=== PATIENT | male | born 1950 | race Caucasian/White ===

== ENCOUNTER 2019-05-08 08:44 | Outpatient (CLI) | payer MEDICARE ==
[2019-05-08] MEDS ORDERED: Gadobenate Dimeglumine 529 MG/1 ML (20ML VIAL) ONE (09:11)
--- NOTE | 2019-05-08 09:57 | MRI ---
Brain MRI with and without contrast: 05/08/2019 COMPARISON: None HISTORY: Memory impairment, difficulty with recall TECHNIQUE: Multiplanar multisequence MR imaging of the brain obtained with and without contrast FINDINGS: The diffusion weighted imaging demonstrates no evidence for acute infarction. The axial gradient echo imaging demonstrates no evidence for intracranial hemorrhage. There is mild diffuse cerebral volume loss with associated prominence of the CSF containing spaces. Multiple subcentimeter foci of increased T2 and FLAIR signal noted within the deep and subcortical wh ite matter bilaterally, evidence of small vessel disease. There is mild mucosal thickening involving the bilateral ethmoid air cells and the left maxillary sin us. There are a few opacified mastoid air cells on the left. Small linear areas of peripheral increased T2 signal noted within the right cerebellar hemisphere sug gesting areas of prior ischemia. Arterial flow voids at the axial level of the skull base appear grossly unremarkable on the T2-weighted imaging. The postcontrast imaging demonstrates no abnormal enhancement within the brain parenchyma. IMPRESSION: Evidence of small vessel disease. No acute findings.
== END 2019-05-08 08:45 | disposition home or self-care (01) ==
LOC: SCSMRI 08:44
PROVIDERS: ATTEND Psychiatry & Neurology Neurology
DX: R41.3 Other amnesia (principal); I67.9 Cerebrovascular disease, unspecified
CPT/HCPCS: 70553; 82565

== ENCOUNTER 2019-06-07 10:14 | Outpatient (CLI) | payer MEDICARE ==
--- NOTE | 2019-06-07 10:37 | RAD ---
XR Hip Rt 2-3 View: 06/07/2019 12:00 AM CLINICAL INDICATION: Pain COMPARISON: None. FINDINGS: Fracture:No fracture. Arthropathy:Mild arthropathy. Incidental findings:Surgical clips overlie the bilateral thigh soft tissues IMPRESSION: 1. No acute osseous abnormality. 2. Mild osteoarthritis.
== END 2019-06-07 10:15 | disposition home or self-care (01) ==
LOC: BICRAD 10:14
PROVIDERS: ATTEND Family Medicine
DX: M25.551 Pain in right hip (principal); M16.11 Unilateral primary osteoarthritis, right hip

== ENCOUNTER 2022-08-08 11:51 | Inpatient (IN) | payer MEDICARE ==
[2022-08-08 12:37] LABS: #Basophils 0.1 thou/uL (0.0-0.2); #Lymphocytes 1.1 thou/uL (1.20-3.40); #Monocytes 0.2 thou/uL (0.11-0.59); #Neutrophils 2.8 thou/uL (1.40-6.50); %Basophils 1.5 % (0.0-1.0); %Eosinophils 0.4 % (0.0-10.0); %Lymphocytes 25.7 % (21.0-51.0); %Monocytes 4.5 % (0.0-10.0); %Neutrophils 67.9 % (42.0-75.0); Hemoglobin 13.9 g/dL (14.0-18.0); Mean Corpuscular HGB CONC 32.6 g/dL (32.0-36.0); Mean Corpuscular Hemoglobin 33.3 pg (27.0-31.0); Mean Platelet Volume 9.1 fL (7.4-10.4); Platelet Count 94 thou/uL (130-400); RBC Distribution Width 12.7 % (11.5-14.5); Red Blood Cell (RBC) Count 4.19 mill/uL (4.70-6.10); White Blood Cell (WBC) Count 4.1 thou/uL (4.8-10.8)
[2022-08-08 12:57] LABS: ALT (SGPT) 15 U/L (8-55); AST (SGOT) 15 U/L (5-34); Albumin 3.3 g/dL (3.4-4.8); Alkaline Phosphatase 57 U/L (40-110); Anion Gap 86 mmol/L (10-20); BUN (Urea Nitrogen) 11 mg/dL (8.4-25.7); Bilirubin, Total 0.5 mg/dL (0.2-1.2); Calc. Creatinine Clearance 0 mL/min (70-130); Calcium 6.5 mg/dL (7.8-10.44); Chloride 82 mmol/L (98-107); Estimated GFR 98; Globulin 2.2 g/dL (2.4-3.5); Glucose 122 mg/dL (83-110); Potassium 3.2 mmol/L (3.5-5.1); Protein, Total 5.5 g/dL (5.8-8.1)
[2022-08-08 13:18] LABS: Carbon Dioxide 9 mmol/L (23-31); Sodium 174 mmol/L (136-145)
[2022-08-08 13:54] LABS: Bilirubin Negative (Negative); Blood, Urine Negative (Negative); Clarity Clear (Clear); Glucose, Urine (Dipstick) Normal (Negative); Ketone, Urine 20 mg/dL (Negative); Leukocyte Negative Leu/uL (Negative); Nitrite Negative (Negative); Protein, Urine (Dipstick) Negative (Neg-Trace); Specific Gravity, Urine 1.012 (1.002-1.036); Urobilinogen Normal mg/dL (Less than 2)
[2022-08-08 14:07] LABS: Anion Gap 18 mmol/L (10-20); BUN (Urea Nitrogen) 12 mg/dL (8.4-25.7); Calc. Creatinine Clearance 0 mL/min (70-130); Calcium 8.9 mg/dL (7.8-10.44); Carbon Dioxide 16 mmol/L (23-31); Chloride 109 mmol/L (98-107); Estimated GFR 93; Glucose 141 mg/dL (83-110); Lipase 60 U/L (8-78); Potassium 3.6 mmol/L (3.5-5.1); Sodium 139 mmol/L (136-145)
[2022-08-08] MEDS ORDERED: Ondansetron ODT 4 MG TAB PO PRN (16:12)
[2022-08-08] MEDS ORDERED: Acetaminophen 325 MG TAB PO PRN (16:12)
[2022-08-08] MEDS ORDERED: Ondansetron PF 4 MG/2 ML Vial IVP PRN (16:12)
[2022-08-08 16:33] LABS: Lactic Acid 3.2 mmol/L (0.5-2.2)
[2022-08-08 16:41] LABS: Troponin I Less than 0.010 ng/mL (< 0.028)
[2022-08-08 16:59] LABS: Hemoglobin A1c 4.9 % (4.0-6.0)
[2022-08-08 17:50] VITALS: BMI 25.4
[2022-08-08] MEDS ORDERED: Sodium Chloride 0.9% 500 ML IV SCH (18:15)
[2022-08-08] MEDS: Sodium Chloride 0.45% 1,000 ML IV SCH (18:29)
[2022-08-08 19:48] LABS: Troponin I Less than 0.010 ng/mL (< 0.028)
[2022-08-08] MEDS: Famotidine 20 MG TAB PO SCH (21:24)
[2022-08-08] MEDS: Divalproex Sodium DR 500 MG TAB PO SCH (21:24)
[2022-08-08] MEDS: Rosuvastatin 20 MG TAB PO SCH (21:24)
[2022-08-08 22:34] LABS: Lactic Acid 2.2 mmol/L (0.5-2.2)
[2022-08-09 05:42] LABS: Anion Gap 13 mmol/L (10-20); BUN (Urea Nitrogen) 13 mg/dL (8.4-25.7); Calc. Creatinine Clearance 92 mL/min (70-130); Calcium 8.6 mg/dL (7.8-10.44); Carbon Dioxide 19 mmol/L (23-31); Cardiac Risk 3.1 (Less than 4.5); Chloride 108 mmol/L (98-107); Cholesterol 152 mg/dl (< 200 Desired); Estimated GFR 96; Glucose 86 mg/dL (83-110); HDL Cholesterol 49 mg/dL (>60 Neg Risk); LDL Cholesterol, Calculated 87 mg/dL; Potassium 3.5 mmol/L (3.5-5.1); Sodium 136 mmol/L (136-145); Triglycerides 81 mg/dL (Less than 150)
[2022-08-09 05:58] LABS: #Lymphocytes 1.5 thou/uL (1.20-3.40); #Monocytes 0.8 thou/uL (0.11-0.59); #Neutrophils 9.3 thou/uL (1.40-6.50); %Basophils 0.3 % (0.0-1.0); %Eosinophils 0.3 % (0.0-10.0); %Monocytes 6.7 % (0.0-10.0); %Neutrophils 79.7 % (42.0-75.0); Hemoglobin 11.6 g/dL (14.0-18.0); Mean Corpuscular HGB CONC 33.8 g/dL (32.0-36.0); Mean Corpuscular Hemoglobin 33.2 pg (27.0-31.0); Mean Corpuscular Volume 98.4 fL (78.0-98.0); Mean Platelet Volume 9.4 fL (7.4-10.4); Platelet Count 112 thou/uL (130-400); RBC Distribution Width 12.8 % (11.5-14.5); Red Blood Cell (RBC) Count 3.49 mill/uL (4.70-6.10); White Blood Cell (WBC) Count 11.7 thou/uL (4.8-10.8)
[2022-08-09] MEDS: Sodium Chloride 0.45% 1,000 ML IV SCH (08:18)
[2022-08-09] MEDS ORDERED: Potassium Chloride 20 MEQ TAB PO SCH (08:30)
[2022-08-09 08:42] LABS: Magnesium 1.6 mg/dL (1.6-2.6)
[2022-08-09] MEDS ORDERED: Lisinopril 5 MG TAB PO SCH (09:00)
[2022-08-09] MEDS: Lactated Ringer's 1,000 ML IV SCH (09:51)
[2022-08-09] MEDS: Aspirin 325 mg Enteric Coated Tablet PO SCH (09:52)
[2022-08-09] MEDS: Fish Oil 1,000 MG CAP PO SCH (09:53)
[2022-08-09] MEDS: Folic Acid 1 MG TAB PO SCH (09:53)
[2022-08-09] MEDS: Multivit, Therapeutic 1 TAB PO SCH (09:53)
[2022-08-09] MEDS: Famotidine 20 MG TAB PO SCH ×2 (09:54→21:35)
[2022-08-09] MEDS ORDERED: Aspirin 81 mg Enteric Coated Tablet PO SCH (16:30)
[2022-08-09] MEDS: Divalproex Sodium DR 500 MG TAB PO SCH (21:34)
[2022-08-09] MEDS: Rosuvastatin 20 MG TAB PO SCH (21:34)
[2022-08-09] MEDS: Donepezil HCl 10 MG TAB PO SCH (21:35)
[2022-08-10] MEDS: Lactated Ringer's 1,000 ML IV SCH (03:31)
[2022-08-10 05:50] LABS: #Eosinphils 0.2 thou/uL (0.0-0.7); #Lymphocytes 1.6 thou/uL (1.20-3.40); #Monocytes 0.8 thou/uL (0.11-0.59); #Neutrophils 5.4 thou/uL (1.40-6.50); %Eosinophils 1.9 % (0.0-10.0); %Lymphocytes 20.6 % (21.0-51.0); %Monocytes 9.8 % (0.0-10.0); %Neutrophils 67.8 % (42.0-75.0); Hemoglobin 11.8 g/dL (14.0-18.0); Mean Corpuscular HGB CONC 33.3 g/dL (32.0-36.0); Mean Corpuscular Hemoglobin 33.2 pg (27.0-31.0); Mean Corpuscular Volume 99.5 fL (78.0-98.0); Platelet Count 96 thou/uL (130-400); RBC Distribution Width 12.7 % (11.5-14.5); Red Blood Cell (RBC) Count 3.57 mill/uL (4.70-6.10)
[2022-08-10] MEDS: Aspirin 325 mg Enteric Coated Tablet PO SCH (06:09)
[2022-08-10] MEDS: Folic Acid 1 MG TAB PO SCH (06:09)
[2022-08-10] MEDS: Fish Oil 1,000 MG CAP PO SCH (06:09)
[2022-08-10] MEDS: Multivit, Therapeutic 1 TAB PO SCH (06:09)
[2022-08-10] MEDS: Famotidine 20 MG TAB PO SCH ×2 (06:09→20:26)
[2022-08-10 06:35] LABS: ALT (SGPT) 14 U/L (8-55); AST (SGOT) 14 U/L (5-34); Albumin 3.4 g/dL (3.4-4.8); Alkaline Phosphatase 65 U/L (40-110); Anion Gap 12 mmol/L (10-20); BUN (Urea Nitrogen) 15 mg/dL (8.4-25.7); Bilirubin, Direct 0.3 mg/dL (0.1-0.3); Bilirubin, Total 0.8 mg/dL (0.2-1.2); Calc. Creatinine Clearance 84 mL/min (70-130); Calcium 8.3 mg/dL (7.8-10.44); Carbon Dioxide 22 mmol/L (23-31); Chloride 108 mmol/L (98-107); Estimated GFR 93; Glucose 168 mg/dL (83-110); Magnesium 1.7 mg/dL (1.6-2.6); Potassium 3.8 mmol/L (3.5-5.1); Protein, Total 5.8 g/dL (5.8-8.1); Sodium 138 mmol/L (136-145)
[2022-08-10] MEDS ORDERED: Midazolam HCl 2 mg/2 ml Vial ONE (07:06)
[2022-08-10] MEDS ORDERED: Lidocaine 1% 50ML VIAL ONE (07:07)
[2022-08-10] MEDS ORDERED: Heparin 10,000 UNITS/ 10 ML VIAL ONE (07:07)
[2022-08-10] MEDS ORDERED: Fentanyl 100 MCG/2 ML VIAL ONE (07:07)
[2022-08-10] MEDS ORDERED: Iopamidol 370 76% 100 ML VIAL ONE (08:50)
[2022-08-10] MEDS ORDERED: Iopamidol 370 76% 50 ML VIAL FS ONE (08:50)
[2022-08-10] MEDS ORDERED: hydrALAZINE 20 MG/ML VIAL ONE (09:17)
[2022-08-10] MEDS ORDERED: Nitroglycerin 0.4 MG TAB (25 Tab Bottle) SL PRN (09:25)
[2022-08-10] MEDS ORDERED: Sodium Chloride 0.9% 200 ML IV PRN (09:25)
[2022-08-10] MEDS: Donepezil HCl 10 MG TAB PO SCH (20:26)
[2022-08-10] MEDS: Divalproex Sodium DR 500 MG TAB PO SCH (20:26)
[2022-08-10] MEDS: Rosuvastatin 20 MG TAB PO SCH (20:26)
[2022-08-11 05:20] LABS: #Eosinphils 0.2 thou/uL (0.0-0.7); #Lymphocytes 1.5 thou/uL (1.20-3.40); #Monocytes 0.5 thou/uL (0.11-0.59); #Neutrophils 2.5 thou/uL (1.40-6.50); %Basophils 0.9 % (0.0-1.0); %Eosinophils 4.2 % (0.0-10.0); %Lymphocytes 32.7 % (21.0-51.0); %Monocytes 9.6 % (0.0-10.0); %Neutrophils 52.6 % (42.0-75.0); Hemoglobin 12.1 g/dL (14.0-18.0); Mean Corpuscular HGB CONC 33.4 g/dL (32.0-36.0); Mean Corpuscular Hemoglobin 33.2 pg (27.0-31.0); Mean Corpuscular Volume 99.3 fL (78.0-98.0); Platelet Count 105 thou/uL (130-400); RBC Distribution Width 12.6 % (11.5-14.5); Red Blood Cell (RBC) Count 3.66 mill/uL (4.70-6.10); White Blood Cell (WBC) Count 4.7 thou/uL (4.8-10.8)
[2022-08-11 05:35] LABS: Anion Gap 13 mmol/L (10-20); BUN (Urea Nitrogen) 8 mg/dL (8.4-25.7); Calc. Creatinine Clearance 98 mL/min (70-130); Carbon Dioxide 24 mmol/L (23-31); Chloride 108 mmol/L (98-107); Estimated GFR 97; Glucose 84 mg/dL (83-110); Magnesium 1.7 mg/dL (1.6-2.6); Potassium 3.7 mmol/L (3.5-5.1); Sodium 141 mmol/L (136-145)
[2022-08-11] MEDS: Famotidine 20 MG TAB PO SCH ×2 (08:09→21:05)
[2022-08-11] MEDS: Aspirin 325 mg Enteric Coated Tablet PO SCH (08:09)
[2022-08-11] MEDS: Multivit, Therapeutic 1 TAB PO SCH (08:10)
[2022-08-11] MEDS: Fish Oil 1,000 MG CAP PO SCH (08:10)
[2022-08-11] MEDS: Folic Acid 1 MG TAB PO SCH (08:10)
[2022-08-11] MEDS: Divalproex Sodium DR 500 MG TAB PO SCH (21:04)
[2022-08-11] MEDS: Donepezil HCl 10 MG TAB PO SCH (21:04)
[2022-08-11] MEDS: Rosuvastatin 20 MG TAB PO SCH (21:05)
[2022-08-12 05:22] LABS: #Basophils 0.1 thou/uL (0.0-0.2); #Eosinphils 0.2 thou/uL (0.0-0.7); #Lymphocytes 1.5 thou/uL (1.20-3.40); #Monocytes 0.4 thou/uL (0.11-0.59); %Eosinophils 4.3 % (0.0-10.0); %Monocytes 10.2 % (0.0-10.0); %Neutrophils 47.5 % (42.0-75.0); Hemoglobin 12.4 g/dL (14.0-18.0); Mean Corpuscular HGB CONC 33.7 g/dL (32.0-36.0); Mean Corpuscular Hemoglobin 33.1 pg (27.0-31.0); Mean Corpuscular Volume 98.3 fL (78.0-98.0); Mean Platelet Volume 9.4 fL (7.4-10.4); Platelet Count 110 thou/uL (130-400); RBC Distribution Width 12.3 % (11.5-14.5); Red Blood Cell (RBC) Count 3.75 mill/uL (4.70-6.10); White Blood Cell (WBC) Count 4.2 thou/uL (4.8-10.8)
[2022-08-12 05:38] LABS: Anion Gap 12 mmol/L (10-20); BUN (Urea Nitrogen) 15 mg/dL (8.4-25.7); Calc. Creatinine Clearance 89 mL/min (70-130); Calcium 8.8 mg/dL (7.8-10.44); Carbon Dioxide 23 mmol/L (23-31); Chloride 105 mmol/L (98-107); Estimated GFR 95; Glucose 90 mg/dL (83-110); Magnesium 1.8 mg/dL (1.6-2.6); Potassium 3.7 mmol/L (3.5-5.1); Sodium 136 mmol/L (136-145)
[2022-08-12] MEDS: Aspirin 325 mg Enteric Coated Tablet PO SCH (09:00)
[2022-08-12] MEDS ORDERED: Lidocaine 1% (PF) 30 ML VIAL ONE (11:05)
[2022-08-12] MEDS ORDERED: Gentamicin 80 MG/2 ML VIAL ONE (11:05)
[2022-08-12] MEDS ORDERED: ceFAZolin 2 GM/Dextrose 50 ML IVPB ONE (11:05)
[2022-08-12] MEDS ORDERED: CEFAZOLIN 1 GM VIAL ONE (11:05)
[2022-08-12] MEDS ORDERED: Midazolam HCl 2 mg/2 ml Vial ONE (12:30)
[2022-08-12] MEDS: Fish Oil 1,000 MG CAP PO SCH (15:32)
[2022-08-12] MEDS: Famotidine 20 MG TAB PO SCH ×2 (15:32→20:39)
[2022-08-12] MEDS: Multivit, Therapeutic 1 TAB PO SCH (15:32)
[2022-08-12] MEDS: Folic Acid 1 MG TAB PO SCH (15:33)
[2022-08-12] MEDS: Donepezil HCl 10 MG TAB PO SCH (20:39)
[2022-08-12] MEDS: Rosuvastatin 20 MG TAB PO SCH (20:39)
[2022-08-12] MEDS: Divalproex Sodium DR 500 MG TAB PO SCH (20:39)
[2022-08-13 04:51] LABS: #Eosinphils 0.1 thou/uL (0.0-0.7); #Lymphocytes 1.4 thou/uL (1.20-3.40); #Monocytes 0.6 thou/uL (0.11-0.59); #Neutrophils 2.7 thou/uL (1.40-6.50); %Basophils 0.3 % (0.0-1.0); %Eosinophils 2.6 % (0.0-10.0); %Lymphocytes 29.3 % (21.0-51.0); %Monocytes 12.4 % (0.0-10.0); %Neutrophils 55.4 % (42.0-75.0); Hemoglobin 12.1 g/dL (14.0-18.0); Mean Corpuscular HGB CONC 33.5 g/dL (32.0-36.0); Mean Corpuscular Hemoglobin 32.8 pg (27.0-31.0); Mean Corpuscular Volume 97.9 fL (78.0-98.0); Mean Platelet Volume 8.9 fL (7.4-10.4); Platelet Count 117 thou/uL (130-400); RBC Distribution Width 12.2 % (11.5-14.5); Red Blood Cell (RBC) Count 3.69 mill/uL (4.70-6.10); White Blood Cell (WBC) Count 4.9 thou/uL (4.8-10.8)
[2022-08-13 05:01] LABS: Anion Gap 13 mmol/L (10-20); BUN (Urea Nitrogen) 14 mg/dL (8.4-25.7); Calc. Creatinine Clearance 88 mL/min (70-130); Calcium 9.1 mg/dL (7.8-10.44); Carbon Dioxide 22 mmol/L (23-31); Chloride 106 mmol/L (98-107); Estimated GFR 96; Glucose 120 mg/dL (83-110); Magnesium 1.8 mg/dL (1.6-2.6); Potassium 3.9 mmol/L (3.5-5.1); Sodium 137 mmol/L (136-145)
[2022-08-13 08:36] VITALS: BP 133/68; TEMP 97.9
[2022-08-13] MEDS: Aspirin 325 mg Enteric Coated Tablet PO SCH (08:57)
[2022-08-13] MEDS: Fish Oil 1,000 MG CAP PO SCH (08:58)
[2022-08-13] MEDS: Folic Acid 1 MG TAB PO SCH (08:58)
[2022-08-13] MEDS: Famotidine 20 MG TAB PO SCH (08:58)
[2022-08-13] MEDS: Multivit, Therapeutic 1 TAB PO SCH (08:58)
[2022-08-13] MEDS ORDERED: Ezetimibe 10 MG TAB PO SCH (09:00)
== END 2022-08-13 10:24 | disposition home or self-care (01) | DRG 242 ==
LOC: ERS 11:51 → 2SW 15:27 → OBSVTOIN 08-10 11:11
PROVIDERS: ADMIT Internal Medicine; ATTEND Internal Medicine
PROC: 0JH606Z Insertion of Pacemaker, Dual Chamber into Chest Subcutaneous Tissue and Fascia, Open Approach (ICD-10-PCS; principal; 2022-08-10)
PROC: 02H60JZ Insertion of Pacemaker Lead into Right Atrium, Open Approach (ICD-10-PCS; 2022-08-10)
PROC: 02HK0JZ Insertion of Pacemaker Lead into Right Ventricle, Open Approach (ICD-10-PCS; 2022-08-10)
PROC: 4A023N7 Measurement of Cardiac Sampling and Pressure, Left Heart, Percutaneous Approach (ICD-10-PCS; 2022-08-10)
PROC: B2131ZZ Fluoroscopy of Multiple Coronary Artery Bypass Grafts using Low Osmolar Contrast (ICD-10-PCS; 2022-08-10)
PROC: B2151ZZ Fluoroscopy of Left Heart using Low Osmolar Contrast (ICD-10-PCS; 2022-08-10)
DX: I49.5 Sick sinus syndrome (principal); G93.41 Metabolic encephalopathy; U07.1 COVID-19; E87.2 Acidosis; E44.1 Mild protein-calorie malnutrition; I25.110 Atherosclerotic heart disease of native coronary artery with unstable angina pectoris; Z20.822 Contact with and (suspected) exposure to COVID-19; I10 Essential (primary) hypertension; E11.9 Type 2 diabetes mellitus without complications; E78.5 Hyperlipidemia, unspecified; F03.90 Unspecified dementia, unspecified severity, without behavioral disturbance, psychotic disturbance, mood disturbance, and anxiety; D69.6 Thrombocytopenia, unspecified; Z95.1 Presence of aortocoronary bypass graft; Z68.24 Body mass index [BMI] 24.0-24.9, adult
CPT/HCPCS: 33208; 36415; 36416; 70450; 71045; 80048; 80053; 80061; 80076; 81003; 83036; 83605; 83690; 83735; 84443; 84484; 85025; 87040; 87086; 93005; 93010; 93459; 93880; 94760; 99152; 99153; J0360; J0690; J1580; J1644; J2001; J2250; J3010; J3490; J7030; J7120; Q9967; U0003; U0005

== ENCOUNTER 2022-09-23 15:53 | Outpatient (CLI) | payer OTHER | END 2022-09-23 15:54 | disposition home or self-care (01) | LOC: SCSRAD 15:53 | PROVIDERS: ATTEND Family Medicine Sports Medicine | DX: M79.671 Pain in right foot (principal); M19.071 Primary osteoarthritis, right ankle and foot ==